=== PATIENT | female | born 1970 | race Caucasian/White ===

== ENCOUNTER 2016-12-15 08:21 | Emergency (ER) | END 2016-12-15 09:21 | disposition home or self-care (01) | DX: M54.5 Low back pain (principal) | CPT/HCPCS: 96372; 99284; J1885 ==

== ENCOUNTER 2017-01-19 07:17 | Emergency (ER) | payer MEDICAID ==
[~2017-01-19] VITALS: Ht 157.5 cm; Wt 68.0 kg
[~2017-01-19 07:17] MED LIST: IBUP200C11; NO MEDS; PRED20TA; TRAM50TA2 PO
[2017-01-19 07:19] VITALS: Ht 157.5 cm; Wt 68.0 kg
[2017-01-19] MEDS ORDERED: KETOROLAC 60 MG INJ IM STA (07:45)
[2017-01-19] MEDS ORDERED: IBUP-1542 PO (08:21)
[2017-01-19] MEDS ORDERED: TRAM50TA2 PO (08:35)
--- NOTE | 2017-01-19 09:22 | ERD ---
ER Documentation Chief Complaint Date/Time DATE: 01/19/17 TIME: 09:16 Chief Complaint C/O BACK PAIN X 1 MONTH HPI 46-year-old female patient with a past medical history of chronic pain back pain presents to the ED complaining of lower back pain that has been going on intermittently for the last 3 years as well as bilateral elbow pain that started 2 days ago. Patient describes the pain as sharp and rates it a 8 out of 10. 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 Denies any fever, chills, loss of sensation, loss of range of motion, nausea, chest pain, vomiting. Denies any saddle anesthesia, urine or bowel incontinence, urinary retention, dysuria, urgency, frequency, hematuria. ROS All systems reviewed and are negative except as per history of present illness. Medications Home Meds Active Scripts Tramadol HCl (Tramadol HCl) 50 Mg Tablet, 50 MG PO Q6, #20 TAB Prov:TUYET HEBERT PA-C 01/19/17 Tramadol HCl (Tramadol HCl) 50 Mg Tablet, 50 MG PO Q4 Y for PAIN, #20 TAB Prov:ADI LEON PA-C 12/15/16 Reported Medications Prednisone (Prednisone) 20 Mg Tablet 12/09/11 Ibuprofen* (Advil*) 200 Mg Capsule 07/03/11 [No Meds] No Conflict Check 07/16/10 Allergies Allergies: Coded Allergies: No Known Allergy (Verified , 12/15/16) PMhx/Soc History of Surgery: No Anesthesia Reaction: No Hx Neurological Disorder: No Hx Respiratory Disorders: No Hx Cardiac Disorders: No Hx Psychiatric Problems: No Hx Miscellaneous Medical Probl: Yes (SCOLIOSIS ) Hx Alcohol Use: No Hx Substance Use: No Hx Tobacco Use: No Smoking Status: Never smoker Physical Exam Vitals Vital Signs Date Time Temp Pulse Resp B/P Pulse Ox O2 Delivery O2 Flow Rate FiO2 01/19/17 07:19 97.5 69 19 140/90 100 Physical Exam Const: Pea-ugu-iorkxuwgh, well-nourished. In no acute distress. Head: Atraumatic, normocephalic Eyes: Normal Conjunctiva without injection. No purulent discharge. ENT: Normal external ear, nose. Moist oropharynx without tonsillar exudates. Non -erythematous pharynx. Uvula midline. No drooling. No trismus. Neck: No cervical midline tenderness. Full range of motion. No meningismus. No cervical lymphadenopathy. No JVD. Resp: Clear to auscultation bilaterally. No wheezing, rhonchi, rales, or crackles. No accessory muscle use. No retractions. Cardio: Regular rate and rhythm. No murmurs, rubs or gallops. Abd: Soft, nontender, non distended. Normal bowel sounds. No palpable masses. No rebound tenderness. No guarding. Negative McBurney's point. Negative psoas sign. Negative obturator sign. Skin: No petechiae or rashes Back: No midline tenderness. No CVA tenderness. Bilateral lumber tenderness - chronic. Ext: No cyanosis, or edema. Tenderness to palpation of the bilateral lateral epicondyles of elbows. Full range of motion with flexion, extension, supination , pronation. No deformities noted. No erythema or edema. Neur: Awake and alert. Normal gait. Normal coordination. Psych: Normal Mood and Affect Results 24 hrs Current Medications Medications (Trade) Dose Ordered Sig/Crissy Route PRN Reason Start Time Stop Time Status Last Admin Dose Admin Ketorolac Tromethamine (Toradol) 60 mg ONCE STAT IM 01/19/17 07:45 01/19/17 07:46 DC 01/19/17 07:50 Procedures/MDM This is a 46-year-old female patient with a past medical history of chronic back pain presents the ED complaining of bilateral elbow pain that started 2 days ago. Patient is afebrile and nontoxic-appearing. Patient has normal vital signs. 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 Patient has tenderness palpation of the lateral epicondyles. Patient likely has tendinitis. Patient was treated here in the ED with Toradol with slight improvement of her symptoms. Patient has full range of motion with flexion, extension, supination and pronation. Patient is neurovascularly intact. Patient's extremity symptoms have stabilized while they have been evaluated in the department and are appropriate for outpatient follow up. No evidence of fractures, dislocations, compartment syndrome, neurologic injury, vascular injury, open joint, open fracture, tendon laceration, septic arthritis, osteomyelitis, DVT, foreign body, or other emergent conditions. Discharge medications: Tramadol Follow up with primary care physician in 1-2 days. Instructed patient to return to the ED sooner for any worsening symptoms. Patient's questions were answered. Patient understood and agreed with discharge plan. Patient discharged stable. Departure Diagnosis: Primary Impression: Elbow pain Laterality: bilateral Qualified Code: M25.522 - Pain of both elbows Condition: Stable Patient Instructions: Tendonitis Referrals: MANE SAMUELS (PCP) [facility] YOU HAVE RECEIVED A MEDICAL SCREENING EXAM AND THE RESULTS INDICATE THAT YOU DO NOT HAVE A CONDITION THAT REQUIRES URGENT TREATMENT IN THE EMERGENCY DEPARTMENT. FURTHER EVALUATION AND TREATMENT OF YOUR CONDITION CAN WAIT UNTIL YOU ARE SEEN IN YOUR DOCTORS OFFICE WITHIN THE NEXT 1-2 DAYS. IT IS YOUR RESPONSIBILITY TO MAKE AN APPOINTMENT FOR FOLOW-UP CARE. IF YOU HAVE A PRIMARY DOCTOR --you should call your primary doctor and schedule an appointment IF YOU DO NOT HAVE A PRIMARY DOCTOR YOU CAN CALL OUR PHYSICIAN REFERRAL HOTLINE AT IF YOU CAN NOT AFFORD TO SEE A PHYSICIAN YOU CAN CHOSE FROM THE FOLLOWING [facility] [address] [facility] [address] [facility] [facility] [address] [facility] [address] [facility] [address] [facility] [facility]. [address] [facility] [facility] YOU HAVE RECEIVED A MEDICAL SCREENING EXAM AND THE RESULTS INDICATE THAT YOU DO NOT HAVE A CONDITION THAT REQUIRES URGENT TREATMENT IN THE EMERGENCY DEPARTMENT. FURTHER EVALUATION AND TREATMENT OF YOUR CONDITION CAN WAIT UNTIL YOU ARE SEEN IN YOUR DOCTORS OFFICE WITHIN THE NEXT 1-2 DAYS. IT IS YOUR RESPONSIBILITY TO MAKE AN APPOINTMENT FOR FOLOW-UP CARE. IF YOU HAVE A PRIMARY DOCTOR --you should call your primary doctor and schedule and appointment IF YOU DO NOT HAVE A PRIMARY DOCTOR YOU CAN CALL OUR PHYSICIAN REFERRAL HOTLINE AT . IF YOU CAN NOT AFFORD TO SEE A PHYSICIAN YOU CAN CHOSE FROM THE FOLLOWING [facility]: [facility] [address] [place] [address] [facility] [address] [place] [address] [facility] [address] [place] [address] [facility] URGENT CARE/SPECIALTIES Additional Instructions: Llame al doctor MAANA y yolanda sumi INGA PARA DENTRO DE 1-2 MCCLOUD.Dgale a la secretaria que nosotros le instruimos hacer esta inga.Avise o llame si goodrich condicin se empeora antes de la inga. Regresa aqui si peor o no mejor. TUYET HEBERT PA-C Jan 19, 2017 09:22
== END 2017-01-19 09:26 | disposition home or self-care (01) ==
LOC: FTE 07:17
DX: M25.522 Pain in left elbow (principal); M25.521 Pain in right elbow
CPT/HCPCS: 96372; J1885; Z7502